=== PATIENT | male | born 1970 | race Caucasian/White ===

== ENCOUNTER 2021-01-06 22:42 | Emergency (ER) | payer OTHER ==
[~2021-01-06] VITALS: Ht 182.9 cm; Wt 90.7 kg
[2021-01-06] MEDS ORDERED: TOPROL XL25 MG PO (22:50)
[2021-01-06] MEDS ORDERED: VENTOLIN HFA INH8 GM INH (22:51)
[2021-01-06] MEDS ORDERED: MONTELUKAST SODI4 M1 PO (22:52)
[2021-01-06] MEDS ORDERED: FLEXERIL PO (22:54)
[2021-01-06] MEDS ORDERED: EMGALITY S120 MG/1 M (22:56)
[2021-01-06] MEDS ORDERED: NEURONTIN 300M300 M2 PO (22:56)
[2021-01-06] MEDS ORDERED: XARELTO20 MG PO (22:57)
[2021-01-06] MEDS ORDERED: PROTONIX40 M2 PO (22:58)
[2021-01-06] MEDS ORDERED: FLUOXETINE HCL40 MG PO (22:59)
[2021-01-06] MEDS ORDERED: FENOFIBRATE160 MG PO (23:00)
[2021-01-06] MEDS ORDERED: HYDROCODON-ACE1 EA11 PO (23:00)
[2021-01-07 03:38] VITALS: BP 114/60
== END 2021-01-07 03:39 | disposition home or self-care (01) ==
LOC: M.ERS 22:42
DX: S46.911A Strain of unspecified muscle, fascia and tendon at shoulder and upper arm level, right arm, initial encounter (principal); Z79.51 Long term (current) use of inhaled steroids; Z79.891 Long term (current) use of opiate analgesic; Z79.899 Other long term (current) drug therapy; Z88.0 Allergy status to penicillin; Z88.8 Allergy status to other drugs, medicaments and biological substances; X58.XXXA Exposure to other specified factors, initial encounter; Y93.89 Activity, other specified; Y92.89 Other specified places as the place of occurrence of the external cause; Y99.8 Other external cause status